=== PATIENT | female | born 1990 | race Caucasian/White ===

== ENCOUNTER 2017-09-23 12:15 | Emergency (ER) | payer MEDICARE, MEDICAID ==
[~2017-09-23] VITALS: Wt 124.7 kg
[~2017-09-23 12:15] MED LIST: ANXIETY MED; BACTRIM DS 8001 TA1 PO; MOTRIN800 MG PO; [UNRECOGNIZED DRUG - OTHER]; [UNRECOGNIZED DRUG - OTHER]
[2017-09-23] MEDS ORDERED: CYCLOBENZAPRINE10 MG PO (14:03)
[2017-09-23] MEDS ORDERED: NAPROSYN500 MG PO (14:03)
== END 2017-09-23 14:09 | disposition home or self-care (01) ==
LOC: ED 12:15
DX: M54.5 Low back pain (principal); G89.29 Other chronic pain; F17.200 Nicotine dependence, unspecified, uncomplicated

== ENCOUNTER 2023-02-19 12:56 | Emergency (ER) | payer OTHER, MEDICAID ==
[~2023-02-19] VITALS: Wt 90.7 kg
[~2023-02-19 12:56] MED LIST changes: +CYCLOBENZAPRINE10 MG PO; +NAPROSYN500 MG PO
[2023-02-19] MEDS ORDERED: NAPROSYN500 MG PO (13:28)
[2023-02-19] MEDS ORDERED: Peridex 473 ML473 ML PO (13:28)
[2023-02-20] MEDS ORDERED: CLEOCIN HCL150 MG PO (10:34)
== END 2023-02-19 13:50 | disposition home or self-care (01) ==
LOC: ED 12:56
DX: K08.89 Other specified disorders of teeth and supporting structures (principal); H92.01 Otalgia, right ear; M54.2 Cervicalgia; F41.9 Anxiety disorder, unspecified; F31.9 Bipolar disorder, unspecified

== ENCOUNTER 2023-02-20 10:14 | Emergency (ER) | payer OTHER, MEDICAID ==
[~2023-02-20] VITALS: Ht 160 cm; Wt 113.4 kg
[~2023-02-20 10:14] MED LIST changes: +Peridex 473 ML473 ML PO
[2023-02-20] MEDS ORDERED: CLEOCIN HCL150 MG PO (10:34)
== END 2023-02-20 10:47 | disposition home or self-care (01) ==
LOC: ED 10:14
DX: K04.7 Periapical abscess without sinus (principal)

== ENCOUNTER 2023-04-28 15:55 | Emergency (ER) | payer OTHER, MEDICAID ==
[~2023-04-28] VITALS: Ht 160 cm; Wt 113.4 kg
[~2023-04-28 15:55] MED LIST changes: +CLEOCIN HCL150 MG PO
[2023-04-28 18:04] LABS: BILIRUBIN Negative (Negative); BLOOD Negative (Negative); CLARITY Turbid (Clear); COLOR Dark Yellow (Yellow); GLUCOSE Negative (Negative); KETONE Trace (Negative); LEUKO ESTERASE 2+ (Negative); NITRITE Negative (Negative); PH 5.5 (4.5-8.0); SPECIFIC GRAVITY >= 1.030 (1.001-1.030)
[2023-04-28 18:13] LABS: EPITHELIAL CELLS TNTC; RBC 0-2 rbc/hpf (0-2); WBC 21-30 wbc/hpf (0-5)
[2023-04-28 18:14] LABS: BACTERIA 2+
[2023-04-28] MEDS ORDERED: AMOXICILLIN500 M2 PO (19:59)
== END 2023-04-28 19:00 | disposition home or self-care (01) ==
LOC: ED 15:55
PROVIDERS: Nurse Practitioner Family
DX: Z33.1 Pregnant state, incidental (principal); R11.0 Nausea; F41.9 Anxiety disorder, unspecified; F31.9 Bipolar disorder, unspecified; Z79.899 Other long term (current) drug therapy

== ENCOUNTER 2023-06-15 12:13 | Emergency (ER) | payer OTHER, MEDICAID ==
[~2023-06-15 12:13] MED LIST changes: +AMOXICILLIN500 M2 PO
[2023-06-15 12:34] LABS: BASO % 0.2 % (0.0-1.0); EOS # 0.1 10*3/uL (0.0-0.4); EOS % 0.8 % (1.0-4.0); LYMPH # 2.6 10*3/uL (1.3-4.4); LYMPH % 21.9 % (27.0-41.0); MEAN CORPUSCULAR HGB 30.6 pg (27.0-31.0); MEAN CORPUSCULAR HGB CONC 33.3 g/dl (33.0-37.0); MEAN PLATELET VOLUME 11.2 fl (9.6-12.3); MONO # 0.5 10*3/uL (0.1-1.0); MONO % 4.1 % (3.0-9.0); NEUT # 8.7 10*3/uL (2.3-7.9); NEUT % 72.7 % (47.0-73.0); PLATELET COUNT AUTOMATED 218 10*3/uL (130-400); RED BLOOD COUNT 4.35 10*6/uL (4.10-5.10); RED CELL DISTRI WIDTH 13.1 % (0-14.5); WHITE BLOOD COUNT 11.9 10*3/uL (4.8-10.8)
[2023-06-15 12:37] LABS: BILIRUBIN Negative (Negative); BLOOD Negative (Negative); CLARITY Clear (Clear); COLOR Yellow (Yellow); GLUCOSE Negative (Negative); KETONE Negative (Negative); LEUKO ESTERASE Negative (Negative); NITRITE Negative (Negative)
[2023-06-15 12:47] LABS: RBC 0-2 rbc/hpf (0-2); WBC 0-2 wbc/hpf (0-5)
[2023-06-15 12:48] LABS: BACTERIA 1+; EPITHELIAL CELLS 16-20
[2023-06-15 12:52] LABS: URINE AMPHETAMINES Negative (1000ng/ml); URINE BARBITURATES Negative (200ng/ml); URINE BENZODIAZEPINES Negative (200ng/ml); URINE CANNABINOIDS (THC) Negative (50ng/ml); URINE COCAINE Negative (300ng/ml); URINE METHADONE Negative (300ng/ml); URINE OPIATES Negative (300ng/ml); URINE PHENCYCLIDINE Negative (25ng/ml)
[2023-06-15 12:58] LABS: ACT PARTIAL THROMBO TIME 32.2 SECONDS (20.0-32.1)
[2023-06-15 13:08] LABS: ALKALINE PHOSPHATASE 75 U/L (46-116); BUN 5 mg/dl (9-23); CHLORIDE 108 mmol/L (98-107); LIPASE 29 U/L (12-53); POTASSIUM 4.1 mmol/L (3.4-5.1); TOTAL PROTEIN 6.8 gm/dL (6.0-8.0)
[2023-06-15 13:11] LABS: ETHYL ALCOHOL < 3.0 mg/dl (<3); SGPT/ALT < 7 U/L (10-49)
[2023-06-15] MEDS ORDERED: AMOX-CLAV 875-1 EACH PO (13:32)
== END 2023-06-15 13:37 | disposition home or self-care (01) ==
LOC: ED 12:13
PROVIDERS: Internal Medicine
DX: O23.41 Unspecified infection of urinary tract in pregnancy, first trimester (principal); N39.0 Urinary tract infection, site not specified; Z79.899 Other long term (current) drug therapy; Z3A.11 11 weeks gestation of pregnancy

== ENCOUNTER → 2023-06-25 | Outpatient (CLI) | payer OTHER, MEDICAID ==
[~2023-06-25] MED LIST changes: +AMOX-CLAV 875-1 EACH PO
== END | disposition home or self-care (01) ==
LOC: US 01:23
PROVIDERS: ATTEND Nurse Practitioner Women's Health
DX: Z34.81 Encounter for supervision of other normal pregnancy, first trimester (principal)

== ENCOUNTER 2023-07-10 21:06 | Emergency (ER) | payer OTHER, MEDICAID ==
[~2023-07-10] VITALS: Ht 160 cm; Wt 119.4 kg
[2023-07-10 21:48] LABS: ACT PARTIAL THROMBO TIME 26.2 SECONDS (20.0-32.1)
[2023-07-10 21:51] LABS: BASO % 0.2 % (0.0-1.0); EOS # 0.4 10*3/uL (0.0-0.4); EOS % 2.4 % (1.0-4.0); HEMATOCRIT 39.5 % (37.0-47.0); LYMPH # 2.8 10*3/uL (1.3-4.4); LYMPH % 19.1 % (27.0-41.0); MEAN CELL VOLUME 93.8 fl (81.0-99.0); MEAN CORPUSCULAR HGB 31.1 pg (27.0-31.0); MEAN CORPUSCULAR HGB CONC 33.2 g/dl (33.0-37.0); MEAN PLATELET VOLUME 11.5 fl (9.6-12.3); MONO # 0.6 10*3/uL (0.1-1.0); MONO % 4.3 % (3.0-9.0); NEUT # 10.7 10*3/uL (2.3-7.9); NEUT % 73.6 % (47.0-73.0); PLATELET COUNT AUTOMATED 187 10*3/uL (130-400); RED BLOOD COUNT 4.21 10*6/uL (4.10-5.10); RED CELL DISTRI WIDTH 13.1 % (0-14.5); WHITE BLOOD COUNT 14.5 10*3/uL (4.8-10.8)
[2023-07-10 22:05] LABS: ALKALINE PHOSPHATASE 81 U/L (46-116); BUN < 5 mg/dl (9-23); CHLORIDE 109 mmol/L (98-107); LIPASE 28 U/L (12-53); POTASSIUM 3.5 mmol/L (3.4-5.1); SGPT/ALT 8 U/L (10-49); TOTAL PROTEIN 6.6 gm/dL (6.0-8.0)
[2023-07-10 22:37] LABS: BILIRUBIN Negative (Negative); BLOOD Trace-Lysed (Negative); CLARITY Cloudy (Clear); COLOR Dark Yellow (Yellow); GLUCOSE Negative (Negative); KETONE 3+ (Negative); LEUKO ESTERASE Trace (Negative); NITRITE Negative (Negative); PH 5.5 (4.5-8.0); SPECIFIC GRAVITY >= 1.030 (1.001-1.030)
[2023-07-10 23:04] LABS: CALCIUM OXALATE CRYSTALS 2+; EPITHELIAL CELLS TNTC
[2023-07-10 23:05] LABS: YEAST TRACE
== END 2023-07-11 03:22 | disposition short-term general hospital (02) ==
LOC: ED 21:06
PROVIDERS: Internal Medicine
DX: O26.892 Other specified pregnancy related conditions, second trimester (principal); R10.9 Unspecified abdominal pain; F41.9 Anxiety disorder, unspecified; F31.9 Bipolar disorder, unspecified; Z3A.15 15 weeks gestation of pregnancy

== ENCOUNTER → 2025-10-06 | Outpatient (CLI) | payer MEDICARE, MEDICAID ==
[2025-10-06 16:33] LABS: BASO # 0.0 10*3/uL (0.0-0.1); BASO % 0.3 % (0.0-1.0); EOS # 0.2 10*3/uL (0.0-0.4); EOS % 2.5 % (1.0-4.0); MEAN CELL VOLUME 92.9 fl (81.0-99.0); MEAN CORPUSCULAR HGB 30.1 pg (27.0-31.0); MEAN PLATELET VOLUME 10.4 fl (9.6-12.3); MONO # 0.4 10*3/uL (0.1-1.0); MONO % 6.4 % (3.0-9.0); NEUT # 4.0 10*3/uL (2.3-7.9); NEUT % 59.0 % (47.0-73.0); NUCLEATED RED BLOOD CELL 0.0 % (0.0-0.0); NUCLEATED RED BLOOD CELL 0.0 10*3/uL (0.0-0.0); PLATELET COUNT AUTOMATED 252 10*3/uL (130-400); RED CELL DISTRI WIDTH 13.4 % (0-14.5)
[2025-10-06 17:45] LABS: BUN 14 mg/dl (9-23); FREE T4 1.06 ng/dl (0.89-1.76); SGPT/ALT 12 U/L (5-49)
== END | disposition home or self-care (01) ==
LOC: LAB 16:18
PROVIDERS: ATTEND Internal Medicine
DX: I10 Essential (primary) hypertension (principal); M79.89 Other specified soft tissue disorders; E55.9 Vitamin D deficiency, unspecified; E66.89 Other obesity not elsewhere classified; Z79.899 Other long term (current) drug therapy